=== PATIENT | female | born 1965 | race Caucasian/White ===

== ENCOUNTER 2016-07-15 21:17 | Emergency (ER) | payer MEDICARE, OTHER ==
[~2016-07-15] VITALS: Ht 165.1 cm; Wt 75.0 kg
[~2016-07-15 21:17] MED LIST: BUPR75TA9 PO; TRAZ150T65 PO
[2016-07-15 21:40] VITALS: Ht 165.1 cm; Wt 75.0 kg
--- NOTE | 2016-07-15 23:21 | RADRPT ---
PROCEDURE: US Pelvis. CLINICAL INDICATION: Pelvic pain. Patchy bleeding. TECHNIQUE: Multiple sonographic images of the pelvis were obtained utilizing a transabdominal and endovaginal technique. The images were reviewed on a PACS workstation. COMPARISON: None. FINDINGS: The uterus is visualized and measures 7.5 x 4 x 5 cm in size. 1.1 cm subserosal fundal uterine fibro id. The endometrial echo complex is normal and measures 6mm. Trace fluid within the endometrial can al. The right ovary has a normal echotexture and measures 2.3 x 1.6 x 1.9 cm in size . Normal right ovarian Doppler flow. 1.6 cm right ovarian follicle or cyst. The left ovary is not visualized. N o left adnexal mass or free fluid. Cervical Nabothian cysts. IMPRESSION: 1. Trace fluid within the endometrial canal. 2. 1.1 cm fundal subserosal uterine fibroid. 3. 1.6 cm right ovarian cyst or follicle. No free fluid in the cul-de-sac. 4. Nonvisualization left ovary. 5. Nabothian cysts. RPTAT:AAJJ Physician Minerva Date Time Electronically viewed and signed by Physician Minerva on 07/15/2016 23:21 CAROLYN/
[2016-07-16 00:25] LABS: ADD UMIC YES; URINE BILIRUBIN (Dip) NEGATIVE (NEGATIVE); URINE BLOOD (Dip) 3+ (NEGATIVE); URINE COLOR YELLOW (YELLOW); URINE GLUCOSE (Dip) NEGATIVE (NEGATIVE); URINE KETONES (Dip) NEGATIVE (NEGATIVE); URINE LEUKOCYTE ESTERASE (Dip) TRACE (NEGATIVE); URINE NITRITE (Dip) NEGATIVE (NEGATIVE); URINE TOTAL PROTEIN (Dip) TRACE (NEGATIVE); URINE UROBILINOGEN (Dip) 0.2 E.U./dL (0.1-1.0)
[2016-07-16 00:31] LABS: BASOPHILS % 0.6 % (0.0-2.0); EOSINOPHILS # 0.1 10^3/ul (0.0-0.5); HEMATOCRIT 31.7 % (37.0-47.0); HEMOGLOBIN 10.8 g/dl (12.0-16.0); LYMPHOCYTES # 2.5 10^3/ul (0.8-2.9); LYMPHOCYTES % 34.5 % (15.0-51.0); MEAN CORPUSCULAR HEMOGLOBIN 27.2 pg (29.0-33.0); MEAN CORPUSCULAR HGB CONC 34.2 g/dl (32.0-37.0); MEAN CORPUSCULAR VOLUME 79.4 fl (82.0-101.0); MEAN PLATELET VOLUME 11.6 fl (7.4-10.4); MONOCYTE # 0.6 10^3/ul (0.3-0.9); MONOCYTES % 7.8 % (0.0-11.0); NEUTROPHIL # 4.1 10^3/ul (1.6-7.5); NEUTROPHILS % 56.1 % (39.0-77.0); PLATELET COUNT 190 10^3/UL (140-440); RED BLOOD COUNT 3.99 10^6/ul (4.20-5.40); RED CELL DISTRIBUTION WIDTH 13.3 % (11.5-14.5); UNCORRECTED WBC 7.3 10^3/ul (4.8-10.8); WHITE BLOOD COUNT 7.3 10^3/ul (4.8-10.8)
[2016-07-16 00:32] LABS: SUSPECT 1
[2016-07-16 00:33] LABS: CONDITION 1; LH ANALYZER COMMENTS 1
[2016-07-16 00:37] LABS: URINE RBCS >200 /HPF (0)
[2016-07-16 00:38] LABS: BACTERIA,URINE RARE; SQUAMOUS EPITHELIAL CELL,UR FEW
[2016-07-16 00:44] LABS: POTASSIUM 3.2 mmol/L (3.5-5.1)
[2016-07-16 00:46] LABS: ALBUMIN/GLOBULIN RATIO 1.25; CREATININE 0.58 mg/dl (0.44-1.00); TOTAL PROTEIN 7.2 g/dl (6.1-8.1)
[2016-07-16 00:47] LABS: CALCIUM 8.8 mg/dl (8.4-10.2)
--- NOTE | 2016-07-16 02:34 | ERD ---
ER Documentation Chief Complaint Date/Time DATE: 07/16/16 TIME: 02:31 Chief Complaint VAG BLEEDING X 18 DAYS, 5 PADS TODAY HPI 51-year-old female with a past medical history of anemia and fibromyalgia presents to the ED complaining of vaginal bleeding that started 18 days ago. States that she started taking duloxetine and stated that she was afraid that this was causing her to bleed more. Denies any chest pain, shortness of breath , weakness, dizziness, vaginal discharge, abdominal pain, nausea, vomiting. Denies being sexually active. States that she still has her menses. States that she followed up with her family doctor and stated that she was not yesterday. ROS All systems reviewed and are negative except as per history of present illness. Medications Home Meds Reported Medications Bupropion Hcl (Wellbutrin) 75 Mg Tablet, 75 MG PO DAILY 10/07/12 Trazodone Hcl* (Trazodone Hcl*) 150 Mg Tablet, 150 MG PO HS 10/07/12 Allergies Allergies: Coded Allergies: No Known Allergy (Unverified , 10/07/12) PMhx/Soc Medical and Surgical Hx: pt denies Medical Hx, pt denies Surgical Hx History of Surgery: Yes (BILATERAL CHEST BIOPSIES) Anesthesia Reaction: No Hx Neurological Disorder: Yes (hyperthyroid) Hx Respiratory Disorders: No Hx Cardiac Disorders: Yes (htn) Hx Psychiatric Problems: Yes (depression) Hx Miscellaneous Medical Probl: Yes (KIDNEY STONES, GASTRITIS) Hx Alcohol Use: No Hx Substance Use: No Hx Tobacco Use: No Smoking Status: Never smoker Physical Exam Vitals Vital Signs Date Time Temp Pulse Resp B/P Pulse Ox O2 Delivery O2 Flow Rate FiO2 07/15/16 21:40 98.1 95 20 121/71 98 Physical Exam Const: Exk-ace-vuiadksee, well-nourished. In no acute distress. Head: Atraumatic, normocephalic Eyes: Normal Conjunctiva without injection. No purulent discharge. ENT: Normal external ear, nose. Moist oropharynx without tonsillar exudates. Non -erythematous pharynx. Uvula midline. No drooling. No trismus. Neck: No cervical midline tenderness. Full range of motion. No meningismus. No cervical lymphadenopathy. No JVD. Resp: Clear to auscultation bilaterally. No wheezing, rhonchi, rales, or crackles. No accessory muscle use. No retractions. Cardio: Regular rate and rhythm. No murmurs, rubs or gallops. Abd: Soft, slight suprapubic tenderness, non distended. Normal bowel sounds. No palpable masses. No rebound tenderness. No guarding. Negative McBurney's point. Negative psoas sign. Negative obturator sign. Skin: No petechiae or rashes Back: No midline tenderness. No CVA tenderness. Ext: No cyanosis, or edema. Neur: Awake and alert. Normal gait. Normal coordination. Psych: Normal Mood and Affect Result Diagram: 07/15/16 0010 07/15/16 0010 Results 24 hrs Laboratory Tests Test 07/15/16 00:10 07/15/16 23:50 Alanine Aminotransferase (ALT/SGPT) 19IU/L Albumin 4.0g/dl Albumin/Globulin Ratio 1.25 Alkaline Phosphatase 63IU/L Anion Gap 14 Aspartate Amino Transf (AST/SGOT) 20IU/L Basophils # 0.010^3/ul Basophils % 0.6% Blood Morphology Comment Blood Urea Nitrogen 10mg/dl Calcium Level 8.8mg/dl Carbon Dioxide Level 29mmol/L Chloride Level 102mmol/L Creatinine 0.58mg/dl Direct Bilirubin 0.00mg/dl Eosinophils # 0.110^3/ul Eosinophils % 1.0% Globulin 3.20g/dl Glucose Level 100mg/dl Hematocrit 31.7% Hemoglobin 10.8g/dl Indirect Bilirubin 0.0mg/dl Lymphocytes # 2.510^3/ul Lymphocytes % 34.5% Mean Corpuscular Hemoglobin 27.2pg Mean Corpuscular Hemoglobin Concent 34.2g/dl Mean Corpuscular Volume 79.4fl Mean Platelet Volume 11.6fl Monocytes # 0.610^3/ul Monocytes % 7.8% Neutrophils # 4.110^3/ul Neutrophils % 56.1% Nucleated Red Blood Cells # 0.010^3/ul Nucleated Red Blood Cells % 0.0/100WBC Platelet Count 16315^3/UL Potassium Level 3.2mmol/L Red Blood Count 3.9910^6/ul Red Cell Distribution Width 13.3% Sodium Level 142mmol/L Total Bilirubin 0.0mg/dl Total Protein 7.2g/dl White Blood Count 7.310^3/ul Urine Bacteria RARE Urine Bilirubin NEGATIVE Urine Clarity HAZY Urine Color YELLOW Urine Glucose NEGATIVE% Urine Hemoglobin 3+ Urine Ketones NEGATIVE Urine Leukocyte Esterase TRACE Urine Microscopic RBC >200/HPF Urine Microscopic WBC 0-2/HPF Urine Nitrite NEGATIVE Urine Specific Diagonal 1.020 Urine Squamous Epithelial Cells FEW Urine Total Protein TRACE Urine Urobilinogen 0.2 E.U./dL Urine pH 6.0 Procedures/MDM This is a 51-year-old female with a past medical history of anemia and fibromyalgia presents the ED complaining of vaginal bleeding. Patient is afebrile and nontoxic-appearing. Patient has normal vital signs. An ultrasound of the pelvis, CBC, CMP, UA, pelvic ultrasound was ordered to further evaluate patient. CBC: No leukocytosis. No e/o of systemic infection.Hbg 10.8 noted. CMP: No e/o severe acidosis, alkalosis, renal failure, diabetic ketoacidosis, liver disease Lipase within normal limits. Urine: Trace leukocyte esterase, no nitrites, 3+ hematuria. Urine : negative PROCEDURE: US Pelvis. CLINICAL INDICATION: Pelvic pain. Patchy bleeding. TECHNIQUE: Multiple sonographic images of the pelvis were obtained utilizing a transabdominal and endovaginal technique. The images were reviewed on a PACS workstation. COMPARISON: None. FINDINGS: The uterus is visualized and measures 7.5 x 4 x 5 cm in size. 1.1 cm subserosal fundal uterine fibroid. The endometrial echo complex is normal and measures 6mm. Trace fluid within the endometrial canal. The right ovary has a normal echotexture and measures 2.3 x 1.6 x 1.9 cm in size . Normal right ovarian Doppler flow. 1.6 cm right ovarian follicle or cyst. The left ovary is not visualized. No left adnexal mass or free fluid. Cervical Nabothian cysts. IMPRESSION: 1. Trace fluid within the endometrial canal. 2. 1.1 cm fundal subserosal uterine fibroid. 3. 1.6 cm right ovarian cyst or follicle. No free fluid in the cul-de-sac. 4. Nonvisualization left ovary. 5. Nabothian cysts. Patient's symptoms could likely be due to possible fibroid noted pelvic ultrasound. Ovarian cysts were also noted on ultrasound. Low suspicion for symptomatic anemia, ectopic , sepsis, PID, appendicitis, ovarian torsion, tubo-ovarian abscess, diverticulitis, surgical abdomen, or other emergent conditions. Patient to follow up with [facility] in 2 days for further evaluation and treatment. I instructed patient to follow up with PCP for continuation/discontinuation and management of taking Duloxetine. Patient is to return sooner to the ED for any worsening symptoms. Patient's questions were answered. Patient understood and agreed with discharge plan. Departure Diagnosis: Primary Impression: Fibroid Additional Impressions: Anemia Ovarian cyst Condition: Stable Patient Instructions: Anemia, Iron Deficiency (Adult), Ovarian Cyst, Uterine Fibroids Referrals: [facility] YOU HAVE RECEIVED A MEDICAL SCREENING EXAM AND THE RESULTS INDICATE THAT YOU DO NOT HAVE A CONDITION THAT REQUIRES URGENT TREATMENT IN THE EMERGENCY DEPARTMENT. FURTHER EVALUATION AND TREATMENT OF YOUR CONDITION CAN WAIT UNTIL YOU ARE SEEN IN YOUR DOCTORS OFFICE WITHIN THE NEXT 1-2 DAYS. IT IS YOUR RESPONSIBILITY TO MAKE AN APPOINTMENT FOR FOLOW-UP CARE. IF YOU HAVE A PRIMARY DOCTOR --you should call your primary doctor and schedule an appointment IF YOU DO NOT HAVE A PRIMARY DOCTOR YOU CAN CALL OUR PHYSICIAN REFERRAL HOTLINE AT IF YOU CAN NOT AFFORD TO SEE A PHYSICIAN YOU CAN CHOSE FROM THE FOLLOWING [facility] [address] [facility]. [facility] [address] [facility]. [facility] [address] [facility]. [facility] [address] [facility]. [facility] [address] [facility]. [facility]. [address] [facility]. [facility] YOU HAVE RECEIVED A MEDICAL SCREENING EXAM AND THE RESULTS INDICATE THAT YOU DO NOT HAVE A CONDITION THAT REQUIRES URGENT TREATMENT IN THE EMERGENCY DEPARTMENT. FURTHER EVALUATION AND TREATMENT OF YOUR CONDITION CAN WAIT UNTIL YOU ARE SEEN IN YOUR DOCTORS OFFICE WITHIN THE NEXT 1-2 DAYS. IT IS YOUR RESPONSIBILITY TO MAKE AN APPOINTMENT FOR FOLOW-UP CARE. IF YOU HAVE A PRIMARY DOCTOR --you should call your primary doctor and schedule and appointment IF YOU DO NOT HAVE A PRIMARY DOCTOR YOU CAN CALL OUR PHYSICIAN REFERRAL HOTLINE AT . IF YOU CAN NOT AFFORD TO SEE A PHYSICIAN YOU CAN CHOSE FROM THE FOLLOWING COUNT INCLUDES THE [facility] INSTITUTIONS: [facility] [address] [place] [address] [facility] [address] [place] [address] FOR[facility]LY [facility] + [facility] [address] [place] [address] [facility] [place] [address] [facility] [address] [place] [address] OFFICE FAX , [facility] [address] [place] [address] [address] [address] [place] [address] [address] VERGARA [facility] [address] [facility], [facility] [address] [address] [facility] [address] [place] [address] [facility] [address] [place] [address] [address] [facility] [address] - JAVIER [address]ACKSONA [address] [facility] [address] [address] SNATOS, [place] [address] [facility], [facility] [address] [address] [address] [place], [place] [id number] [facility] Hours: 8:00 am - 5:00 pm Additional Instructions: Visite a avila fermín herzog para un EXAMEN para un envo a servicios de Obstetricia y Ginecologa Regrese a estas instalaciones si no se mejora cali esperbamos o cali le dijimos. MARCI STYLES PA-C Jul 16, 2016 02:33 MARCI STYLES PA-C Jul 16, 2016 02:33
== END 2016-07-16 02:19 | disposition home or self-care (01) ==
LOC: E/R 21:17 → FTE 07-16 02:19
DX: D25.9 Leiomyoma of uterus, unspecified (principal); D64.9 Anemia, unspecified; N83.201 Unspecified ovarian cyst, right side; I10 Essential (primary) hypertension
CPT/HCPCS: 36415; 76830; 76856; 80053; 81001; 81003; 85025